=== PATIENT | female | born 1995 ===

== ENCOUNTER 2018-05-14 05:48 | Emergency (ER) | payer MEDICAID ==
[2018-05-14 06:24] LABS: Basophils % (Auto) 0.3 % (0.0-1.8); Eosinophils # (Auto) 0.1 K/mm3 (0.0-0.4); Hematocrit 37.8 % (30.3-42.9); Hemoglobin 12.6 gm/dl (10.1-14.3); Lymphocytes # (Auto) 2.5 K/mm3 (1.2-5.4); Lymphocytes % (Auto) 26.4 % (13.4-35.0); Mean Corpuscular HGB Conc 33 % (30-34); Mean Corpuscular Volume 91 fl (79-97); Monocytes # (Auto) 0.8 K/mm3 (0.0-0.8); Monocytes % (Auto) 8.5 % (0.0-7.3); Platelet Count 339 K/mm3 (140-440); Red Blood Count 4.17 M/mm3 (3.65-5.03); Red Cell Distribution Width 15.3 % (13.2-15.2)
[2018-05-14 06:33] LABS: Bilirubin,Urine NEG (Negative); Blood,Urine NEG (Negative); Color,Urine Yellow (Yellow); Hyaline Casts,Urine 1 /LPF; Mucus,Urine FEW /HPF; Protein,Urine <15 mg/dL mg/dL (Negative)
[2018-05-14 06:35] LABS: Amorphous Crystals,Urine 2+
[2018-05-14 06:52] LABS: Alanine Aminotransferase 8 units/L (7-56); Albumin 4.3 g/dL (3.9-5); BUN/Creatinine Ratio 20; Blood Urea Nitrogen 12 mg/dL (7-17); Calcium 9.5 mg/dL (8.4-10.2); Hemolysis Index 8
--- NOTE | 2018-05-14 07:20 | Emergency Department Report ---
ED Abdominal Pain HPI - General Chief Complaint: Abdominal Pain Stated Complaint: ABD PAIN Source: patient Mode of arrival: Ambulatory Limitations: No Limitations - History of Present Illness Initial Comments: This is a 22-year-old -[place] female who presents with diffuse abdominal pain for 6 days. Patient reports pain is 5 out of 10 on pain scale currently with cramping and intermittent sharp pain. Last menstrual period was 04/09/2018, 0. Patient denies nausea or vomiting, frequency, urgency, dysuria, vaginal discharge or vaginal bleeding. MD Complaint: abdominal pain Location: diffuse Radiation: none Migration to: no migration Severity: moderate Severity scale (0 -10): 5 Quality: cramping, sharp Consistency: intermittent Improves With: nothing Worsens With: nothing Associated Symptoms: denies other symptoms - Related Data LMP Date: 04/09/18 LMP (females 10-50): unknown Previous Rx's Medication Instructions Recorded Last Taken Type 21/Iron Fu/Folic Acid 1 each PO DAILY #30 tablet 05/14/18 Unknown Rx [ Complete Caplet] Allergies Allergy/AdvReac Type Severity Reaction Status Date / Time No Known Allergies Allergy Unverified 05/14/18 05:55 ED Review of Systems ROS: Stated complaint: ABD PAIN Other details as noted in HPI Constitutional: denies: chills, fever Respiratory: denies: cough, shortness of breath, wheezing Cardiovascular: denies: chest pain, palpitations Gastrointestinal: abdominal pain. denies: nausea, diarrhea Musculoskeletal: denies: back pain, joint swelling, arthralgia Skin: denies: rash, lesions Neurological: denies: headache, weakness, paresthesias Psychiatric: denies: anxiety, depression ED Past Medical Hx - Past Medical History Previous Medical History?: Yes Hx Asthma: Yes - Surgical History Past Surgical History?: No - Social History Smoking Status: Current Every Day Smoker Substance Use Type: Alcohol, Marijuana - Medications Home Medications: Home Medications Medication Instructions Recorded Confirmed Last Taken Type 21/Iron Fu/Folic Acid 1 each PO DAILY #30 tablet 05/14/18 Unknown Rx [ Complete Caplet] ED Physical Exam - General Limitations: No Limitations General appearance: alert, in no apparent distress - Respiratory Respiratory exam: Present: normal lung sounds bilaterally. Absent: respiratory distress - Cardiovascular Cardiovascular Exam: Present: regular rate, normal rhythm. Absent: systolic murmur, diastolic murmur, rubs, gallop - GI/Abdominal GI/Abdominal exam: Present: soft, tenderness (left lower quadrant tenderness), normal bowel sounds. Absent: distended, guarding, rebound, rigid, organomegaly, mass - Back Exam Back exam: Absent: CVA tenderness (R), CVA tenderness (L) - Neurological Exam Neurological exam: Present: alert, oriented X3, normal gait - Psychiatric Psychiatric exam: Present: normal affect, normal mood - Skin Skin exam: Present: warm, dry, intact, normal color. Absent: rash ED Course Vital Signs 05/14/18 05:56 Temperature 98.7 F Pulse Rate 101 H Respiratory 16 Rate Blood Pressure 120/66 O2 Sat by Pulse 99 Oximetry ED Medical Decision Making - Lab Data Result diagrams: 05/14/18 06:10 05/14/18 06:10 - Radiology Data Radiology results: report reviewed ULTRASOUND OB LESS THAN 14 WEEKS - TRANSABDOMINAL AND TRANSVAGINAL INDICATION: Abdominal pain. Serum beta-hCG 3,201 units. COMPARISON: None similar. FINDINGS: Transabdominal and transvaginal pelvic sonography performed in this patient with LMP of 04/09/2018 and estimated menstrual age of 5 weeks and zero days. A 7.4 x 4.1 x 5.9 cm uterus demonstrates a single cystic focus along the fundal endometrium without evidence of a pole at this time. Mean gestational sac diameter of 0.75 cm corresponds to 5 weeks and 4 days. A 1-2 mm intrinsic yolk sac seen. No pelvic free fluid. Right ovary is 2.7 x 2.1 x 1.9 cm and demonstrates a 1.1 cm complex intrinsic area, possible corpus luteum. Unremarkable 3.5 x 1.6 x 1.7 cm left ovary. CONCLUSION: 1. Sonographic findings may represent an intrauterine gestational sac/early estimated at 5 weeks and 4 days with EDC of 01/10/2019, though viability yet not confirmed at this time. 2. Both ovaries visualized, as above. Please also correlate clinically, with serial serum beta-hCG values and/or followup sonogram, as warranted. - Medical Decision Making This is a 22 y.o. female presents with vaginal bleeding during for 2 days. Patient was examined by me. Vitals are normal and patient is in no acute distress. Obtained a urinalysis, CBC, CMP, urine hCG, hCG quant, and OB ultras ound. Quant 3201 all other labs unremarkable. 1. Sonographic findings may represent an intrauterine gestational sac/early estimated at 5 weeks and 4 days with EDC of 01/10/2019, though viability yet not confirmed at this time. 2. Both ovaries visualized, as above. Please also correlate clinically, with serial serum beta-hCG values and/or followup sonogram, as warranted. Patient instructed to have repeat hCG quant in 48 hours with MOBILE DESIGNER or in ER to r/o ectopic . Patient di scharged home in stable condition. Critical care attestation.: If time is entered above; I have spent that time in minutes in the direct care of this critically ill patient, excluding procedure time. ED Disposition Clinical Impression: Abdominal pain affecting , confirmed by positive blood test, Threatened miscarriage in early Disposition: DC-01 TO HOME OR SELFCARE Is pt being admited?: No Does the pt Need Aspirin: No Condition: Stable Instructions: Abdominal Pain (ED) Additional Instructions: Have repeat hCG quant labs in 48 hours with [facility] or ER. Heel were hCG quantitative on this visit was 3201. Follow up with [facility] in 24-48 hours. Return to ER if increased vaginal bleeding, abdominal pain, and low back pain. Prescriptions: 21/Iron Fu/Folic Acid [ Complete Caplet] 1 each PO DAILY #30 tablet Referrals: YARA BEEBE MD [Primary Care Provider] - 3-5 Days [facility] [Provider Group] - 3-5 Days [facility] [Provider Group] - 3-5 Days [facility] [Provider Group] - 3-5 Days Forms: Work/School Release Form(ED), Accompanied Note Time of Disposition: 08:24
--- NOTE | 2018-05-14 08:07 | Ultrasound Report ---
ULTRASOUND OB LESS THAN 14 WEEKS - TRANSABDOMINAL AND TRANSVAGINAL INDICATION: Abdominal pain. Serum beta-hCG 3,201 units. COMPARISON: None similar. FINDINGS: Transabdominal and transvaginal pelvic sonography performed in this patient with LMP of 04/09/2018 and estimated menstrual age of 5 weeks and zero days. A 7.4 x 4.1 x 5.9 cm uterus demonstrates a single cystic focus along the fundal endometrium without evidence of a pole at this time. Mean gestational sac diameter of 0.75 cm corresponds to 5 weeks and 4 days. A 1-2 mm intrinsic yolk sac seen. No pelvic free fluid. Right ovary is 2.7 x 2.1 x 1.9 cm and demonstrates a 1.1 cm complex intrinsic area, possible corpus luteum. Unremarkable 3.5 x 1.6 x 1.7 cm left ovary. CONCLUSION: 1. Sonographic findings may represent an intrauterine gestational sac/early estimated at 5 weeks and 4 days with EDC of 01/10/2019, though viability yet not confirmed at this time. 2. Both ovaries visualized, as above. Please also correlate clinically, with serial serum beta-hCG values and/or followup sonogram, as warranted. Thank you for the opportunity to participate in this patient's care.
[2018-05-16 11:26] VITALS: BP 120/66
== END 2018-05-14 08:39 | disposition home or self-care (01) ==
LOC: ED 05:48
DX: O20.0 Threatened abortion (principal); J45.909 Unspecified asthma, uncomplicated; F17.200 Nicotine dependence, unspecified, uncomplicated; Z3A.01 Less than 8 weeks gestation of pregnancy
CPT/HCPCS: 36415; 76801; 76817; 80053; 81001; 84702; 84703; 85025; 86850; 86900; 86901

== ENCOUNTER 2018-07-08 16:54 | Emergency (ER) | payer MEDICAID, OTHER ==
--- NOTE | 2018-07-08 17:03 | Emergency Department Report ---
Blank Doc - Documentation Documentation: This is a 23-year-old female that presents with pelvic pain with n/v. Denies any vaginal bleeding. Stated just had a miscarriage. This initial assessment/diagnostic orders/clinical plan/treatment(s) is/are subject to change based on patient's health status, clinical progression and re- assessment by fellow clinical providers in the ED. Further treatment and workup at subsequent clinical providers discretion. Patient/guardians urged not to elope from the ED as their condition may be serious if not clinically assessed and managed. Initial orders include: 1- Patient sent to [facility] for further evaluation and treatment 2- labs 3- UA
[2018-07-08 17:05] VITALS: BP 117/65
[2018-07-08 17:51] LABS: Basophils % (Auto) 0.3 % (0.0-1.8); Eosinophils # (Auto) 0.1 K/mm3 (0.0-0.4); Eosinophils % (Auto) 0.6 % (0.0-4.3); Hematocrit 35.7 % (30.3-42.9); Hemoglobin 12.3 gm/dl (10.1-14.3); Lymphocytes # (Auto) 2.5 K/mm3 (1.2-5.4); Lymphocytes % (Auto) 26.6 % (13.4-35.0); Mean Corpuscular HGB Conc 34 % (30-34); Mean Corpuscular Hemoglobin 31 pg (28-32); Mean Corpuscular Volume 90 fl (79-97); Monocytes # (Auto) 0.7 K/mm3 (0.0-0.8); Monocytes % (Auto) 6.9 % (0.0-7.3); Platelet Count 341 K/mm3 (140-440); Red Blood Count 3.96 M/mm3 (3.65-5.03)
[2018-07-08 18:10] LABS: Alanine Aminotransferase 9 units/L (7-56); Albumin 4.3 g/dL (3.9-5); BUN/Creatinine Ratio 15; Blood Urea Nitrogen 9 mg/dL (7-17); Calcium 9.2 mg/dL (8.4-10.2); Hemolysis Index 2; Lipase 20 units/L (13-60)
[2018-07-08 18:17] LABS: Bilirubin,Direct < 0.2 mg/dL (0-0.2)
[2018-07-08 18:40] LABS: Bacteria,Urine 1+ /HPF (Negative); Bilirubin,Urine NEG (Negative); Blood,Urine NEG (Negative); Color,Urine Yellow (Yellow); Hyaline Casts,Urine 1 /LPF; Mucus,Urine 3+ /HPF
--- NOTE | 2018-07-08 19:06 | Emergency Department Report ---
ED General Adult HPI - General Chief complaint: Nausea/Vomiting/Diarrhea Stated complaint: NAUSEA/VOMIT/ABD PAIN Time Seen by Provider: 07/08/18 17:02 Source: patient Mode of arrival: Ambulatory Limitations: No Limitations - History of Present Illness Initial comments: Pt is a 23 yo female who presents to the ED with c/o suprapubic abd pain that began a couple of days ago. She has associated N/V, and yellow vaginal discharge. The patient is sexually active and did not use protection two weeks ago. She denies any urinary sx or fever. She states she is tolerating water. She states that 3 weeks ago she had a miscarriage and was seen at [facility] the pt s tates she was 9 weeks , she has an appointment with a DINKING MACHINE OPERATOR next week. LNMP 3 days ago. - Related Data Previous Rx's Medication Instructions Recorded Last Taken Type Ciprofloxacin HCl [Ciprofloxacin 500 mg PO BID 7 Days #14 tablet 07/08/18 Unknown Rx TAB] Ibuprofen 600 mg PO Q6HR PRN #20 tablet 07/08/18 Unknown Rx Ondansetron [Zofran Odt] 4 mg PO Q8HR PRN #10 tab.rapdis 07/08/18 Unknown Rx Phenazopyridine [Pyridium] 100 mg PO TID PRN #10 tab 07/08/18 Unknown Rx Allergies Allergy/AdvReac Type Severity Reaction Status Date / Time No Known Allergies Allergy Unverified 05/14/18 05:55 ED Review of Systems ROS: Stated complaint: NAUSEA/VOMIT/ABD PAIN Other details as noted in HPI Comment: All other systems reviewed and negative ED Past Medical Hx - Past Medical History Hx Asthma: Yes - Surgical History Past Surgical History?: No - Social History Smoking Status: Current Some Day Smoker Substance Use Type: Alcohol - Medications Home Medications: Home Medications Medication Instructions Recorded Confirmed Last Taken Type Ciprofloxacin HCl [Ciprofloxacin 500 mg PO BID 7 Days #14 tablet 07/08/18 U nknown Rx TAB] Ibuprofen 600 mg PO Q6HR PRN #20 tablet 07/08/18 Unknown Rx Ondansetron [Zofran Odt] 4 mg PO Q8HR PRN #10 tab.rapdis 07/08/18 Unknown Rx Phenazopyridine [Pyridium] 100 mg PO TID PRN #10 tab 07/08/18 Unknown Rx ED Physical Exam - General Limitations: No Limitations General appearance: alert, in no apparent distress - Head Head exam: Present: atraumatic, normocephalic - Eye Eye exam: Present: normal appearance - ENT ENT exam: Present: mucous membranes moist - Respiratory Respiratory exam: Present: normal lung sounds bilaterally. Absent: respiratory distress, wheezes, rales, rhonchi, stridor, chest wall tenderness, accessory muscle use, decreased breath sounds, prolonged expiratory - Cardiovascular Cardiovascular Exam: Present: regular rate, normal rhythm, normal heart sounds. Absent: systolic murmur, rubs, gallop - GI/Abdominal GI/Abdominal exam: Present: soft, tenderness (mild suprapubic ), normal bowel sounds. Absent: distended, guarding, rebound, rigid - External exam: Present: normal external exam. Absent: erythema, swelling, lesions, lacerations, ecchymosis, bleeding Speculum exam: Present: vaginal discharge, cervical discharge (copious amounts of white vaginal discharge ), other (female RN present during examination ). Absent: vaginal bleeding, foreign body, tissue, laceration Bi-manual exam: Present: normal bi-manual exam. Absent: cervical motion tendernes, adnexal tenderness, adnexal mass, uterine enlargement, uterine tenderness - Back Exam Back exam: Absent: CVA tenderness (R), CVA tenderness (L) - Neurological Exam Neurological exam: Present: alert, oriented X3 - Psychiatric Psychiatric exam: Present: normal affect, normal mood - Skin Skin exam: Present: warm, dry, intact ED Course Vital Signs 07/08/18 17:02 Temperature 97.7 F Pulse Rate 67 Respiratory 16 Rate Blood Pressure 117/65 O2 Sat by Pulse 97 Oximetry ED Medical Decision Making - Lab Data Result diagrams: 07/08/18 17:30 07/08/18 17:30 Laboratory Results - last 24 hr 07/08/18 07/08/18 07/08/18 17:30 17:30 17:30 WBC 9.5 RBC 3.96 Hgb 12.3 Hct 35.7 MCV 90 MCH 31 MCHC 34 RDW 14.0 Plt Count 341 Lymph % (Auto) 26.6 [place] % (Auto) 6.9 Eos % (Auto) 0.6 Baso % (Auto) 0.3 Lymph # 2.5 [place] # 0.7 Eos # 0.1 Baso # 0.0 Seg Neutrophils % 65.6 Seg Neutrophils # 6.2 Sodium 141 Potassium 3.7 Chloride 103.8 Carbon Dioxide 27 Anion Gap 14 BUN 9 Creatinine 0.6 L Estimated GFR > 60 BUN/Creatinine Ratio 15 Glucose 106 H Calcium 9.2 Total Bilirubin 0.30 Direct Bilirubin < 0.2 Indirect Bilirubin 0.1 AST 10 ALT 9 Alkaline Phosphatase 53 Total Protein 7.3 Albumin 4.3 Albumin/Globulin Ratio 1.4 Lipase 20 HCG, Quant 0.842 Urine Color Urine Turbidity Urine pH Ur Specific [place] Urine Protein Urine Glucose (UA) Urine Ketones Urine Blood Urine Nitrite Urine Bilirubin Urine Urobilinogen Ur Leukocyte Esterase Urine WBC (Auto) Urine RBC (Auto) U Epithel Cells (Auto) Urine Bacteria (Auto) Hyaline Casts Urine Mucus 07/08/18 17:48 WBC RBC Hgb Hct MCV MCH MCHC RDW Plt Count Lymph % (Auto) [place] % (Auto) Eos % (Auto) Baso % (Auto) Lymph # [place] # Eos # Baso # Seg Neutrophils % Seg Neutrophils # Sodium Potassium Chloride Carbon Dioxide Anion Gap BUN Creatinine Estimated GFR BUN/Creatinine Ratio Glucose Calcium Total Bilirubin Direct Bilirubin Indirect Bilirubin AST ALT Alkaline Phosphatase Total Protein Albumin Albumin/Globulin Ratio Lipase HCG, Quant Urine Color Yellow Urine Turbidity Slightly-cloudy Urine pH 5.0 Ur Specific [place] 1.032 H Urine Protein 30 mg/dl Urine Glucose (UA) Neg Urine Ketones Tr Urine Blood Neg Urine Nitrite Neg Urine Bilirubin Neg Urine Urobilinogen 2.0 Ur Leukocyte Esterase Sm Urine WBC (Auto) 15.0 H Urine RBC (Auto) 8.0 U Epithel Cells (Auto) 10.0 Urine Bacteria (Auto) 1+ Hyaline Casts 1 Urine Mucus 3+ - Medical Decision Making Pt is a 23 yo female who presents to the ED with c/o suprapubic abd pain that began a couple of days ago. She has associated N/V, and yellow vaginal discharge . The patient is sexually active and did not use protection two weeks ago. She denies any urinary sx or fever. She states she is tolerating water. She states that 3 weeks ago she had a miscarriage and was seen at [facility] the pt states she was 9 weeks , she has an appointment with a DINKING MACHINE OPERATOR next week. LNMP 3 days ago. VSS, labs WNL, UA shows evidence of UTI. Wet prep is negative. Pt swabbed and treated for G/C. Advised to follow up with medical records in one week for results. pt given treatement for UTI advised to take all medication as prescribed. Advised pt to follow up with a primary care doctor in the next 2-3 days and keep her appointment with an DINKING MACHINE OPERATOR in the next 2-3 days. Return to the ED for any new or worsening symptoms. no sexual intercourse for 10 days. Have partner tested and treated. If concerned about any other STDs please be seen by the health department, pulling machine operator, PCP. - Differential Diagnosis UTI, STD, Yeast, trichomonas, BV Critical care attestation.: If time is entered above; I have spent that time in minutes in the direct care of this critically ill patient, excluding procedure time. ED Disposition Clinical Impression: Vaginal discharge, Screen for STD (sexually transmitted disease) UTI (urinary tract infection) Qualifiers: Urinary tract infection type: acute cystitis Hematuria presence: without hematuria Qualified Code(s): N30.00 - Acute cystitis without hematuria Disposition: TO HOME OR SELFCARE Is pt being admited?: No Does the pt Need Aspirin: No Condition: Stable Instructions: Sexually Transmitted Diseases (ED), Safe Sex (ED), Urinary Tract Infection in Women (ED) Additional Instructions: Please follow up with a primary care doctor and a DINKING MACHINE OPERATOR in the next 2-3 days. Take all medication as prescribed. Return to the emergency room for any new or worsening symptoms as discussed. If concerned about any other STDs please be seen by primary care, pulling machine operator, or health department. No sexual intercourse for 10 days. Have any partner tested and treated as well. You can contact medical records in 1 week for results of your test. Prescriptions: Ciprofloxacin HCl [Ciprofloxacin TAB] 500 mg PO BID 7 Days #14 tablet Ibuprofen 600 mg PO Q6HR PRN #20 tablet PRN Reason: Pain, Mild (1-3) Phenazopyridine [Pyridium] 100 mg PO TID PRN #10 tab PRN Reason: Spasms Ondansetron [Zofran Odt] 4 mg PO Q8HR PRN #10 tab.rapdis PRN Reason: Nausea And Vomiting Referrals: TREY CHAPMAN MD [Primary Care Provider] - 2-3 Days Forms: Work/School Release Form(ED) Time of Disposition: 20:11 Print Language: FAROESE
[2018-07-08] MEDS ORDERED: XYLOCAINE 1% MPF 5 mL INFILTRATI ONE (19:45)
[2018-07-08] MEDS ORDERED: ROCEPHIN IM ONE (19:45)
[2018-07-08] MEDS ORDERED: ZITHROMAX PO ONE (19:45)
== END 2018-07-08 20:59 | disposition home or self-care (01) ==
LOC: ED 16:54
DX: O23.41 Unspecified infection of urinary tract in pregnancy, first trimester (principal); O21.9 Vomiting of pregnancy, unspecified; O99.511 Diseases of the respiratory system complicating pregnancy, first trimester; J45.909 Unspecified asthma, uncomplicated; O99.331 Smoking (tobacco) complicating pregnancy, first trimester; Z3A.09 9 weeks gestation of pregnancy
CPT/HCPCS: 36415; 80048; 80076; 81001; 83690; 84702; 85025; 87210; 87591; 96372; 99284; J0696